=== PATIENT | male | born 1970 | race Caucasian/White ===

== ENCOUNTER 2017-05-22 08:56 | Emergency (ER) | payer OTHER ==
[~2017-05-22] VITALS: Ht 180.3 cm; Wt 95.3 kg
[2017-05-22 10:46] VITALS: BP 137/83
== END 2017-05-22 11:04 | disposition home or self-care (01) ==
LOC: ED 08:56
DX: T63.441A Toxic effect of venom of bees, accidental (unintentional), initial encounter (principal); Y92.89 Other specified places as the place of occurrence of the external cause
CPT/HCPCS: J7512